=== PATIENT | female | born 1955 | race African-American/Black ===

== ENCOUNTER 2016-11-28 07:32 | Day surgery (SDC) | payer OTHER ==
--- NOTE | 2016-11-21 11:19 | HISTORY AND PHYSICAL E ---
History and Physical NAME: RANI WALLER : 1955 AGE: 61Y ADMITTED: 11/28/2016 ROOM: CHIEF COMPLAINT: Colon screening. HISTORY: Patient did have colonoscopy 2006. Patient did have colonoscopy and upper endoscopy. The last colonoscopy 2014 showing history of adenoma polyp cecum. PAST MEDICAL HISTORY: Thyroid disorder, peptic ulcer disease, diagnosed at [facility]. SOCIAL HISTORY: , 4 children. Patient does have history of hypertension. Her father is . PHYSICAL EXAMINATION: VITALS: Blood pressure 100/60, pulse 80, respiration 20, temperature 98. HEAD, EYES, EARS, NOSE, THROAT: Normal. NECK: Supple. ABDOMEN: Soft. NEUROLOGIC: Exam negative. Patient has a history of adenomatous polyp cecum. CONCLUSION: Colon screening. PLAN: Colonoscopy, schedule for 11/28/16. Today is 11/11/16. DICTATING PHYSICIAN: BUFFY BANDA M.D. [id number] PHY#: [id number] ID: [id number] JOB#: [id number] ACCT: [id number] cc:BUFFY BANDA M.D. >
[~2016-11-28 07:32] MED LIST: EPINEPHRINE INJ 1 MG/10 ML DISP.SYRIN ONE; FLUMAZENIL INJ 0.5 MG/5 ML VIAL ONE; GLUCAGON,HUMAN RECOMB 1 MG INJ ONE; GLYCOPYRROLATE INJ 0.4 MG/2 ML VIAL ONE; LIDOCAINE 2% JELLY 30 ML TUBE ONE; NALOXONE HCL INJ/PF 0.4 MG/1 ML SDV ONE; ONDANSETRON HCL INJ/PF 4 MG/2 ML SDV ONE
[2016-11-28] MEDS: MIDAZOLAM 2 MG/2 ML INJ ONE ×2 (08:20→08:24)
[2016-11-28] MEDS: FENTANYL CITRATE INJ/PF 100 MCG/2 ML AMPUL ONE ×2 (08:22→08:26)
[2016-11-28] MEDS ORDERED: SIMETHICONE 80 MG TAB.CHEW ONE (09:48)
[2016-11-28] MEDS ORDERED: SIMETHICONE 80 MG TAB.CHEW PO ONE (09:56)
[2016-11-28 10:06] VITALS: BP 101/49
[2016-11-28 10:10] LABS: ABSOLUTE EOSINOPHILS # (AUTO) 0.2 10^3/uL (0.0-0.6); ABSOLUTE LYMPHOCYTES (AUTO) 2.4 10^3/uL (0.5-4.7); ABSOLUTE MONOCYTES (AUTO) 0.3 10^3/uL (0.1-1.4); ABSOLUTE NEUT (AUTO) 3.7 10^3/uL (1.7-8.2); BASOPHILS % (AUTO) 0.5 % (0-2); EOSINOPHILS % (AUTO) 3.4 % (0-6); HEMATOCRIT 32.4 % (36.0-47.0); HEMOGLOBIN 10.7 g/dL (12.0-15.5); HGB HCT DIFFERENCE -0.3; LYMPHOCYTES % (AUTO) 36.1 % (13-45); MEAN CORPUSCULAR HEMOGLOBIN 23.4 pg (27.0-33.4); MEAN CORPUSCULAR VOLUME 71 fl (80-97); MONOCYTES % (AUTO) 4.6 % (3-13); RED BLOOD COUNT 4.57 10^6/uL (3.72-5.28); RED CELL DISTRIBUTION WIDTH 14.9 % (11.5-14.0); SEGMENTED NEUTROPHILS % (AUTO) 55.4 % (42-78); WHITE BLOOD COUNT 6.6 10^3/uL (4.0-10.5)
--- NOTE | 2016-11-28 13:15 | OPERATIVE REPORT E ---
Operative Report NAME: RANI WALLER : 1955 AGE: 61Y DATE OF SURGERY: 11/28/2016 ROOM: PREOPERATIVE DIAGNOSES: Colon screening. History of adenoma polyp cecum. PROCEDURE: Colonoscopy. SURGEON: BUFFY BANDA M.D. ANESTHESIA: Versed 3 and fentanyl 100. TISSUE REMOVED OR ALTERED: A 3 mm polyp removed by biopsy mid ascending colon. External hemorrhoids. PROCEDURE: Rectal exam: External hemorrhoids. Rectosigmoid normal. Descending colon normal. Transverse colon normal. Ascending colon: A 3 mm proximal . Cecum normal. Orifice of the appendix visualized. Good prep. Scope withdrawn from cecum and ascending. Again, 3 mm polyp removed by 2 biopsies. Benign looking. Transverse colon normal. Sigmoid descending normal. External hemorrhoids. PLAN: Soft low residue diet for 3 days. Hold aspirin and nonsteroidal 5 days. Baseline CBC. Awaiting biopsy results. Consideration followup colonoscopy 2 years. DICTATING PHYSICIAN: BUFFY BANDA M.D. 1211M [id number] Y#: [id number] ID: [id number] JOB#: [id number] ACCT: [id number] cc:[facility] BUFFY BANDA M.D. >
--- NOTE | 2016-11-28 13:16 | DISCHARGE SUMMARY E ---
Discharge Summary NAME: RANI WALLER : 1955 AGE: 61Y ADMITTED: 11/28/2016 DISCHARGED: 11/28/2016 PROCEDURE: Colonoscopy, biopsy. HISTORY: A 61-year-old female had colonoscopy in 2014. There was a small adenoma polyp in cecum. Today's followup colon shows 3 mm polyp mid ascending colon. DISCHARGE PLAN: Soft low residue diet. Awaiting biopsy results. Baseline CBC. Follow up office visit in the next few days. Consider followup colonoscopy 2 years. DICTATING PHYSICIAN: BUFFY BANDA M.D. [id number] [id number] PHY#: [id number] ID: [id number] JOB#: [id number] ACCT: [id number] cc:[facility] BUFFY GARCIA M.D. >
== END 2016-11-28 10:10 | disposition home or self-care (01) ==
LOC: END 07:32
PROVIDERS: ATTEND Specialist
PROC: 0DBF8ZX Excision of Right Large Intestine, Via Natural or Artificial Opening Endoscopic, Diagnostic (ICD-10-PCS; principal; 2016-11-28 08:00)
DX: Z12.11 Encounter for screening for malignant neoplasm of colon (principal); D12.0 Benign neoplasm of cecum; D12.2 Benign neoplasm of ascending colon; K64.4 Residual hemorrhoidal skin tags; E07.9 Disorder of thyroid, unspecified; I10 Essential (primary) hypertension; Z87.11 Personal history of peptic ulcer disease
CPT/HCPCS: 45380; 36415; 85025; 88305 ×2; J2250; J3010; J1610; J2405; J0171; J2310; J3490

== ENCOUNTER 2019-01-05 08:03 | Day surgery (SDC) | payer MEDICARE, OTHER ==
[~2019-01-05 08:03] MED LIST changes: -EPINEPHRINE INJ 1 MG/10 ML DISP.SYRIN ONE; -FLUMAZENIL INJ 0.5 MG/5 ML VIAL ONE; -GLUCAGON,HUMAN RECOMB 1 MG INJ ONE; -GLYCOPYRROLATE INJ 0.4 MG/2 ML VIAL ONE; +LIDOCAINE 2% INJ-PF (100 MG/5 ML) SYRINGE ONE; -LIDOCAINE 2% JELLY 30 ML TUBE ONE; -NALOXONE HCL INJ/PF 0.4 MG/1 ML SDV ONE; -ONDANSETRON HCL INJ/PF 4 MG/2 ML SDV ONE; +PROPOFOL INJ 200 MG/20 ML VIAL IV ONE
[2019-01-05 10:22] VITALS: BP 164/64
[2019-01-05] MEDS ORDERED: HYDRALAZINE HCL 10 MG TABLET PO ONE (11:15)
[2019-01-05] MEDS ORDERED: ACETAMINOPHEN 325 MG TABLET PO ONE (11:15)
--- NOTE | 2019-01-05 11:49 | Operative Report ---
Operative Report DATE OF SURGERY: 01/05/19 Operative Report: The risks benefits and alternatives of the procedure explained to the patient in detail and informed consent is obtained.A GIF Olympus video scope was inserted into the patient's mouth and hypopharynx, the esophagus is identified intubated and insufflated, the scope was then advanced through the esophagus stomach and duodenum, retroflexion maneuver is done, the esophagus stomach and first and second portions of the duodenum examined PREOPERATIVE DIAGNOSIS: Gastroesophageal reflux disease POSTOPERATIVE DIAGNOSIS: Gastritis status post biopsy rule out Helicobacter pylori OPERATION: EGD with biopsy SURGEON: PAOLA SOUZA ANESTHESIA: LMAC TISSUE REMOVED OR ALTERED: As noted above. COMPLICATIONS: None. ESTIMATED BLOOD LOSS: None. INTRAOPERATIVE FINDINGS: As noted above. PROCEDURE: Patient tolerated the procedure well. No immediate postprocedure complications are noted. Patient is discharged in good condition. Discharge date 01/05/2019. Discharge diet: Regular. Discharge activity: Regular. 2 to 3-week follow-up to discuss findings. Patient is instructed to call the office or proceed to the emergency room should there be any further problems or questions. Wait on the pathology.
--- NOTE | 2019-01-05 23:37 | EKG REPORT ---
SEVERITY:- ABNORMAL ECG - SINUS RHYTHM CONSIDER ANTEROSEPTAL INFARCT : Confirmed by: Lala Casas 05-Jan-2019 23:36:44
== END 2019-01-05 11:00 | disposition home or self-care (01) ==
LOC: END 08:03
PROVIDERS: ATTEND Internal Medicine Gastroenterology
DX: K29.50 Unspecified chronic gastritis without bleeding (principal); K21.9 Gastro-esophageal reflux disease without esophagitis; I10 Essential (primary) hypertension; I20.9 Angina pectoris, unspecified; E66.9 Obesity, unspecified; Z68.35 Body mass index [BMI] 35.0-35.9, adult; Z79.899 Other long term (current) drug therapy; Z79.82 Long term (current) use of aspirin; Z79.02 Long term (current) use of antithrombotics/antiplatelets
CPT/HCPCS: 43239; 88305 ×2; 93005; 93010; 00731; A9270; J2001; J2704; 731; J3490